=== PATIENT | female | born 1985 | race Caucasian/White ===

== ENCOUNTER 2019-11-15 20:05 | Emergency (ER) | payer OTHER ==
[~2019-11-15] VITALS: Ht 167.6 cm; Wt 63.6 kg
[2019-11-15] MEDS ORDERED: RIZA10TA27 PO (21:16)
[2019-11-16] MEDS ORDERED: IBUPROFEN 600 MG TABLET PO ONE (01:15)
[2019-11-16 01:16] VITALS: BP 132/80
== END 2019-11-16 01:17 | disposition home or self-care (01) ==
LOC: EMS 20:09
DX: S46.911A Strain of unspecified muscle, fascia and tendon at shoulder and upper arm level, right arm, initial encounter (principal); X58.XXXA Exposure to other specified factors, initial encounter; Y93.89 Activity, other specified; Y92.89 Other specified places as the place of occurrence of the external cause; Y99.8 Other external cause status